=== PATIENT | female | born 1940 | race Asian ===

== ENCOUNTER 2017-04-08 10:10 | Inpatient (IN) | payer OTHER ==
[~2017-04-08] VITALS: Ht 162.6 cm; Wt 79.4 kg
[2017-04-08] VITALS (27 sets, daily range): BP systolic 121–160; BP diastolic 63–118; TEMP 97.3–98.2; Ht 162.6 cm; Wt 79.4 kg
[~2017-04-08 10:10] MED LIST: AMLO2.5T PO; METFORMIN ER1000 MG PO; METO50TA27 PO; OSCAL 500/1 TAB PO; QUINAPRIL20 MG PO; SIMV20TA2 PO; WARF5TAB6 PO
--- NOTE | 2017-04-08 10:10 | NUR ---
PT BROUGHT IN BY ER NURSE AND WAS A DIRECT ADMIT FROM DR FLORES'S OFFICE. PT ALERT AND ORIENTED.
--- NOTE | 2017-04-08 11:00 | NUR ---
SVT @ 173, MAINTAINED FOR 2MINS. THEN RETURNED TO ST @104. PT HAD NO C/O CHESTPAIN OR SOB.
[2017-04-08 11:25] LABS: PLATELET COUNT 266 K/uL (152-353)
[2017-04-08 11:47] LABS: POTASSIUM 3.4 mmol/L (3.6-5.2); SODIUM 140 mmol/L (136-145)
[2017-04-08 12:01] LABS: PARTIAL THROMBOPLASTIN TIME 25.3 SECONDS (24.5-33.6)
--- NOTE | 2017-04-08 12:06 | NUR ---
HR 105, ST. CARDIZEM 5MG SIVP GIVEN. WILL MONITOR
--- NOTE | 2017-04-08 12:20 | NUR ---
CARDIZEM 5MG IVSP GIVEN 2ND DOSE
[2017-04-08] MEDS ORDERED: TIMOLOL MAL0.5 % OP (14:10)
[2017-04-08] MEDS ORDERED: ALPHAGAN P0.1 % OP (14:12)
[2017-04-08] MEDS ORDERED: TRAVATAN Z0.004 % OP (14:13)
[2017-04-08] MEDS ORDERED: VITAMIN B-121000 MC1 SL (14:15)
--- NOTE | 2017-04-08 14:15 | NUR ---
UP TO BATHROOM TO VOID, TOLERATED WELL
[2017-04-08] MEDS ORDERED: LANTUS SOLOSTAR SC (14:17)
--- NOTE | 2017-04-08 16:07 | NUR ---
PT RESTING WITH EYES CLOSED, NO DISTRESS NOTED
--- NOTE | 2017-04-08 18:00 | NUR ---
PT CONT IN SR, HR @ 68. PT HAS HAD NO C/O DURING THE DAY.
--- NOTE | 2017-04-08 19:20 | NUR ---
LAB DRAW, PT TOLERATED WELL
--- NOTE | 2017-04-08 20:00 | NUR ---
FAMILY AT BEDSIDE. PATIENT AWAKE AND TALKING. NO ACUTE DISTRESS NOTED.
--- NOTE | 2017-04-08 22:45 | NUR ---
PATIENT ASSISTED TO BATHROOM AND BACK INTO BED WITHOUT INCIDENT
[2017-04-09] VITALS (9 sets, daily range): BP systolic 126–163; BP diastolic 65–91; TEMP 97.6–98.6
--- NOTE | 2017-04-09 01:35 | NUR ---
PATIENT ASSISTED TO BATHROOM AND BACK TO BED WITHOUT INCIDENT. NO DISTRESS NOTED.
--- NOTE | 2017-04-09 04:00 | NUR ---
PATIENT ASSISTED TO BATHROOM AND BACK TO BED WITHOUT INCIDENT. BLOOD DRAWN FOR MORNING LABS WITHOUT INCIDENT. NO ACUTE DISTRESS NOTED.
[2017-04-09 04:37] LABS: PLATELET COUNT 231 K/uL (152-353)
--- NOTE | 2017-04-09 05:03 | NUR ---
PATIENT SAID SHE FEELS LIKE HER SUGAR IS GETTING LOW. BLOOD GLUCOSE WAS CHECKED AND FOUND TO BE 162. RESPIRATIONS, HEART RATE, BLOOD PRESSURE, AND O2 SATURATION REMAIN IN NORMAL RANGE. NO ACUTE DISTRESS NOTED. WILL CONTINUE TO MONITOR.
[2017-04-09 05:08] LABS: POTASSIUM 3.8 mmol/L (3.6-5.2); SODIUM 138 mmol/L (136-145)
--- NOTE | 2017-04-09 06:37 | NUR ---
PATIENT AWAKE AND TALKING WITH STAFF. NO COMPLAINTS AT THIS TIME. NO ACUTE DISTRESS NOTED.
--- NOTE | 2017-04-09 07:30 | NUR ---
PT AMBULATING TO BATHROOM WITH WALKER. NAD NOTED.
--- NOTE | 2017-04-09 08:30 | NUR ---
DR FLORES AT BS. NEW ORDERS GIVEN TO MOVE PT TO MED SURG.
--- NOTE | 2017-04-09 09:00 | NUR ---
PT TO ROOM 1109 VIA WC. NAD NOTED. REPORT GIVEN TO ELIZABETH MAC RN
[2017-04-10] VITALS: BP 125/71; TEMP 98.7
[2017-04-10 04:00] VITALS: BP 108/70; TEMP 98.5
[2017-04-10 08:00] VITALS: BP 118/80; TEMP 98.3
[2017-04-10 12:00] VITALS: BP 134/75; TEMP 98.8
--- NOTE | 2017-04-10 15:00 | NUR ---
DISCHARGE ORDERS RECEIVED. PATIENT'S DAUGHTER JAYY CALLED. DISCUSSED OVER THE PHONE THAT DR. FLORES WANTED SOMEONE WHO WAS WILLING AND ABLE TO TAKE RESPONSIBILITY FOR SETTING UP AND ADMINISTERING THE PATIENT'S MEDICATION. JAYY STATES SHE FEELS COMFORTABLE DOING THAT AND WILL COME TO DISCUSS IT FURTHER.
--- NOTE | 2017-04-10 15:45 | NUR ---
JAYY (PATIENT'S YOUNGEST DAUGHTER)IS HERE. REVIEWED PATIENT'S HOME MEDICATIONS WITH HER. SHE VERBALIZES UNDERSTANDING OF MEDICATION SCHEDULE AND FEELS CONFIDENT THAT SHE CAN SET UP HER MEDICATIONS AND MAKE SURE SHE TAKES THEM DAILY SCHEDULED. JAYY SIGNED AN AGREEMENT TO THAT EFFECT. IV REMOVED, BANDAID APPLIED. REVIEWED ALL DISCHARGE INSTRUCTIONS WITH PATIENT AND FAMILY.
[2017-04-10 16:00] VITALS: BP 134/90; TEMP 98.9
--- NOTE | 2017-04-10 16:15 | NUR ---
PATIENT DISCHARGED HOME WITH FAMILY, ESCORTED TO HOSPITAL EXIT VIA WHEELCHAIR.
== END 2017-04-10 16:13 | disposition home or self-care (01) | DRG 310 ==
LOC: ICU 10:10 → MED/SURG 04-09 09:00
PROVIDERS: ADMIT Family Medicine
DX: I48.91 Unspecified atrial fibrillation (principal); I10 Essential (primary) hypertension; Z91.14 Patient's other noncompliance with medication regimen; Z86.73 Personal history of transient ischemic attack (TIA), and cerebral infarction without residual deficits
CPT/HCPCS: 36415; 80053; 82550; 82948; 82962; 83735; 84100; 84484; 85027; 85610; 85730; 93005; J3490

== ENCOUNTER 2017-08-28 10:20 | Outpatient (CLI) | payer OTHER ==
[~2017-08-28 10:20] MED LIST changes: +ALPHAGAN P0.1 % OP; +LANTUS SOLOSTAR SC; +TIMOLOL MAL0.5 % OP; +TRAVATAN Z0.004 % OP; +VITAMIN B-121000 MC1 SL
== END 2017-08-28 19:18 | disposition home or self-care (01) ==
LOC: MAMMO 10:20
DX: Z12.31 Encounter for screening mammogram for malignant neoplasm of breast (principal)

== ENCOUNTER 2018-07-21 15:14 | Emergency (ER) | payer OTHER ==
[~2018-07-21] VITALS: Ht 160 cm; Wt 78.5 kg
[2018-07-21 16:12] LABS: PLATELET COUNT 245 K/uL (152-353)
[2018-07-21 16:35] LABS: POTASSIUM 3.5 mmol/L (3.6-5.2)
[2018-07-21 17:42] VITALS: BP 146/85; TEMP 98
== END 2018-07-21 17:42 | disposition home or self-care (01) ==
LOC: ED 15:14
PROVIDERS: Emergency Medicine
DX: K52.89 Other specified noninfective gastroenteritis and colitis (principal)
CPT/HCPCS: 80053; 85027; 96365; 96374; 99284; J2405

== ENCOUNTER 2018-08-30 09:24 | Outpatient (CLI) | payer OTHER | END 2018-08-30 22:47 | disposition home or self-care (01) | LOC: MAMMO 09:24 | DX: Z12.31 Encounter for screening mammogram for malignant neoplasm of breast (principal) ==

== ENCOUNTER 2019-09-23 13:02 | Outpatient (CLI) | payer OTHER | END 2019-09-23 19:31 | disposition home or self-care (01) | LOC: MAMMO 13:02 | DX: Z12.31 Encounter for screening mammogram for malignant neoplasm of breast (principal) ==

== ENCOUNTER 2019-09-25 15:13 | Emergency (ER) | payer OTHER ==
[~2019-09-25] VITALS: Ht 160 cm; Wt 78.5 kg
[2019-09-25 15:31] VITALS: BP 183/113; TEMP 98.3
[2019-09-25 15:45] LABS: PLATELET COUNT 231 K/uL (152-353)
[2019-09-25 15:57] LABS: POTASSIUM 3.8 mmol/L (3.6-5.2)
[2019-09-25 16:03] LABS: PARTIAL THROMBOPLASTIN TIME 26.9 SECONDS (24.5-33.6)
== END 2019-09-25 18:57 | disposition home or self-care (01) ==
LOC: ED 15:13
PROVIDERS: Hospitalist
DX: R19.7 Diarrhea, unspecified (principal); R11.2 Nausea with vomiting, unspecified; K44.9 Diaphragmatic hernia without obstruction or gangrene; R10.84 Generalized abdominal pain
CPT/HCPCS: 36415; 80053; 81000; 82150; 83605; 83690; 85027; 85610; 85730; 93005; 96360; 96365; 96375; 99284; J2405; J3490; Q9963

== ENCOUNTER 2019-09-26 13:07 | Outpatient (CLI) | payer OTHER | END 2019-09-26 22:35 | disposition home or self-care (01) | LOC: MAMMO 13:07 | DX: Z12.31 Encounter for screening mammogram for malignant neoplasm of breast (principal) ==

== ENCOUNTER 2020-09-28 05:46 | Inpatient (IN) | payer OTHER ==
[~2020-09-28] VITALS: Ht 152.4 cm; Wt 66.3 kg
[2020-09-28] VITALS (14 sets, daily range): BP systolic 105–143; BP diastolic 62–100; TEMP 97.8–101.7; Ht 152.4 cm; Wt 66.3 kg
[2020-09-28 06:46] LABS: PLATELET COUNT 154 K/uL (152-353)
[2020-09-28 07:09] LABS: PARTIAL THROMBOPLASTIN TIME 38.2 SECONDS (24.5-33.6)
[2020-09-28 07:21] LABS: POTASSIUM 2.6 mmol/L (3.6-5.2); SODIUM 140 mmol/L (136-145)
[2020-09-28] MEDS ORDERED: AMLODIPINE BESYLATE PO (11:45)
[2020-09-28] MEDS ORDERED: MEMA5TAB PO (11:46)
[2020-09-28] MEDS ORDERED: FORTAMET500 MG PO (11:48)
[2020-09-28 13:14] LABS: POTASSIUM 2.9 mmol/L (3.6-5.2)
[2020-09-29] VITALS: BP 101/61; TEMP 99.5
[2020-09-29 04:00] VITALS: BP 96/62; TEMP 98.7
[2020-09-29 08:00] VITALS: BP 94/55; TEMP 97.8
[2020-09-29 08:42] LABS: PLATELET COUNT 207 K/uL (152-353)
[2020-09-29 16:00] VITALS: BP 118/63; TEMP 98.2
[2020-09-29 20:00] VITALS: BP 121/67; TEMP 98.1
[2020-09-29 23:57] VITALS: BP 127/70; TEMP 98.7
[2020-09-30 04:00] VITALS: BP 124/74; TEMP 98.2
[2020-09-30 07:08] LABS: PLATELET COUNT 238 K/uL (152-353)
[2020-09-30 07:28] LABS: POTASSIUM 2.5 mmol/L (3.6-5.2)
[2020-09-30 08:00] VITALS: BP 122/78; TEMP 98
[2020-09-30 12:00] VITALS: BP 109/59; TEMP 97.9
[2020-09-30 16:00] VITALS: BP 116/59; TEMP 98.1
[2020-09-30 20:00] VITALS: BP 117/69; TEMP 98.2
[2020-09-30 23:30] LABS: POTASSIUM 2.2 mmol/L (3.6-5.2)
[2020-10-01] VITALS (7 sets, daily range): BP systolic 123–158; BP diastolic 68–79; TEMP 98–99
[2020-10-01 06:53] LABS: PLATELET COUNT 298 K/uL (152-353)
[2020-10-01 07:28] LABS: POTASSIUM 2.3 mmol/L (3.6-5.2)
[2020-10-02 01:38] LABS: POTASSIUM 2.6 mmol/L (3.6-5.2)
[2020-10-02 04:00] VITALS: BP 121/67; TEMP 99.9
[2020-10-02 06:24] LABS: PLATELET COUNT 303 K/uL (152-353)
[2020-10-02 06:56] LABS: POTASSIUM 3.2 mmol/L (3.6-5.2)
[2020-10-02 08:00] VITALS: BP 118/68; TEMP 208.8
[2020-10-02 11:46] VITALS: BP 122/66; TEMP 98.1
[2020-10-02 16:00] VITALS: BP 114/66; TEMP 98.2
[2020-10-02 20:00] VITALS: BP 113/65; TEMP 98.5
[2020-10-03] VITALS: BP 129/70; TEMP 98.8
[2020-10-03 03:45] VITALS: BP 120/70; TEMP 98.6
[2020-10-03 06:13] LABS: PLATELET COUNT 379 K/uL (152-353)
[2020-10-03 08:00] VITALS: BP 122/60; TEMP 99.7
[2020-10-03 12:00] VITALS: BP 115/62; TEMP 98.5
[2020-10-03 16:00] VITALS: BP 131/72; TEMP 98.4
[2020-10-03 19:26] VITALS: BP 128/74; TEMP 98.9
[2020-10-04] VITALS (7 sets, daily range): BP systolic 110–129; BP diastolic 58–80; TEMP 97.3–98.7
[2020-10-04 05:56] LABS: POTASSIUM 3.6 mmol/L (3.6-5.2)
[2020-10-04 06:36] LABS: PLATELET COUNT 306 K/uL (152-353)
[2020-10-05 04:00] VITALS: BP 124/70; TEMP 98.2
[2020-10-05 08:00] VITALS: BP 119/77; TEMP 98.3
[2020-10-05 11:07] LABS: PLATELET COUNT 452 K/uL (152-353)
[2020-10-05 11:25] LABS: POTASSIUM 3.4 mmol/L (3.6-5.2)
[2020-10-05 12:00] VITALS: BP 123/72; TEMP 98.2
[2020-10-05 16:00] VITALS: BP 120/72; TEMP 97.9
[2020-10-05 20:00] VITALS: BP 118/70; TEMP 98.1
[2020-10-06] VITALS: BP 126/78; TEMP 98.3
[2020-10-06 03:48] VITALS: BP 121/69; TEMP 98.3
[2020-10-06 07:45] LABS: PLATELET COUNT 430 K/uL (152-353)
[2020-10-06 07:59] LABS: POTASSIUM 3.2 mmol/L (3.6-5.2)
[2020-10-06 08:00] VITALS: BP 141/74; TEMP 97.9
[2020-10-06 11:57] VITALS: BP 110/69; TEMP 98.3
== END 2020-10-06 14:20 | disposition home or self-care (01) | DRG 177 ==
LOC: ED 05:46 → MED/SURG 07:59
PROVIDERS: Emergency Medicine Emergency Medical Services; ADMIT Family Medicine; ATTEND Family Medicine
DX: U07.1 COVID-19 (principal); J18.8 Other pneumonia, unspecified organism; E46 Unspecified protein-calorie malnutrition; E87.6 Hypokalemia; E11.9 Type 2 diabetes mellitus without complications; F03.90 Unspecified dementia, unspecified severity, without behavioral disturbance, psychotic disturbance, mood disturbance, and anxiety; Z86.73 Personal history of transient ischemic attack (TIA), and cerebral infarction without residual deficits; I48.0 Paroxysmal atrial fibrillation; R00.0 Tachycardia, unspecified; I95.89 Other hypotension; T45.511A Poisoning by anticoagulants, accidental (unintentional), initial encounter; I10 Essential (primary) hypertension
CPT/HCPCS: 36415; 80048; 80053; 82550; 82553; 83605; 83735; 83880; 84100; 84484; 85007; 85027; 85379; 85610; 85730; 87040; 87635; 93005; 94667; 94668; 94760; 96360; 96365; 96366; 96375; 99285; J0456; J0696; J1885; J2405; J3475; J3480; J3490; U0003

== ENCOUNTER 2020-10-07 19:03 | Emergency (ER) | payer OTHER ==
[~2020-10-07] VITALS: Ht 152.4 cm; Wt 66.2 kg
[~2020-10-07 19:03] MED LIST changes: +AMLODIPINE BESYLATE PO; +FORTAMET500 MG PO; +MEMA5TAB PO
[2020-10-07 19:44] LABS: POTASSIUM 2.8 mmol/L (3.6-5.2); SODIUM 144 mmol/L (136-145)
[2020-10-07 19:53] LABS: PLATELET COUNT 483 K/uL (152-353)
[2020-10-07 20:06] LABS: PARTIAL THROMBOPLASTIN TIME 35.3 SECONDS (24.5-33.6)
[2020-10-07 20:53] VITALS: BP 97/55; TEMP 98.7
== END 2020-10-07 20:53 | disposition home or self-care (01) ==
LOC: ED 19:03
PROVIDERS: Hospitalist
DX: E11.649 Type 2 diabetes mellitus with hypoglycemia without coma (principal); Z79.84 Long term (current) use of oral hypoglycemic drugs; E87.6 Hypokalemia; U07.1 COVID-19; I48.91 Unspecified atrial fibrillation; Z79.01 Long term (current) use of anticoagulants
CPT/HCPCS: 80053; 80320; 82550; 82962; 83880; 84484; 85027; 85610; 85730; 93005; 96360; 96361; 99283; 99284

== ENCOUNTER 2020-10-16 10:11 | Outpatient (CLI) | payer OTHER | END 2020-10-16 21:32 | disposition home or self-care (01) | LOC: MAMMO 10:11 | PROVIDERS: ATTEND Nurse Practitioner Family | DX: Z12.31 Encounter for screening mammogram for malignant neoplasm of breast (principal) ==

== ENCOUNTER 2021-07-16 15:25 | Outpatient (CLI) | payer OTHER | END 2021-07-16 20:09 | disposition home or self-care (01) | LOC: RAD 15:25 | PROVIDERS: ATTEND Nurse Practitioner Primary Care | DX: Z20.822 Contact with and (suspected) exposure to COVID-19 (principal) | CPT/HCPCS: 36415; 82728; 85379; 86140 ==

== ENCOUNTER 2021-07-26 14:10 | Observation (INO) | payer OTHER ==
[~2021-07-26] VITALS: Ht 157.5 cm; Wt 67.1 kg
[2021-07-26 14:11] VITALS: BP 154/78; TEMP 97.2
[2021-07-26 14:56] LABS: PLATELET COUNT 284 K/uL (152-353)
[2021-07-26 15:00] VITALS: BP 138/79
[2021-07-26 15:19] LABS: POTASSIUM 3.5 mmol/L (3.6-5.2)
[2021-07-26 15:30] VITALS: BP 135/68
[2021-07-26 16:00] VITALS: BP 138/72
[2021-07-26 16:30] VITALS: BP 131/71; TEMP 97.2
[2021-07-26 23:45] VITALS: BP 145/78; TEMP 97.5; Ht 157.5 cm; Wt 67.1 kg
[2021-07-27] VITALS: BP 154/86; TEMP 98.3
[2021-07-27 04:00] VITALS: BP 144/75; TEMP 98
[2021-07-27 05:31] LABS: PLATELET COUNT 249 K/uL (152-353)
[2021-07-27 05:41] LABS: POTASSIUM 3.4 mmol/L (3.6-5.2)
[2021-07-27 08:00] VITALS: BP 133/68; TEMP 98.3
[2021-07-27 12:00] VITALS: BP 127/73; TEMP 98.1
[2021-07-27 16:00] VITALS: BP 140/86; BP 152/92; TEMP 97.5
[2021-07-27 20:00] VITALS: BP 131/82; TEMP 98.7
[2021-07-28] VITALS: BP 132/70; TEMP 98.2
[2021-07-28 04:00] VITALS: BP 123/64; TEMP 98.5
[2021-07-28 06:07] LABS: PLATELET COUNT 263 K/uL (152-353)
[2021-07-28 06:54] LABS: POTASSIUM 3.4 mmol/L (3.6-5.2)
[2021-07-28 08:00] VITALS: BP 140/73; TEMP 98.2
[2021-07-28 12:00] VITALS: BP 122/72; TEMP 98.5
[2021-07-28 16:00] VITALS: BP 151/78; TEMP 98.3
[2021-07-28 21:20] VITALS: BP 147/81; TEMP 98.3
[2021-07-29] VITALS: BP 103/58; TEMP 97.3
[2021-07-29 04:00] VITALS: BP 142/85; TEMP 98.4
[2021-07-29 06:04] LABS: PLATELET COUNT 249 K/uL (152-353)
[2021-07-29 06:41] LABS: POTASSIUM 3.2 mmol/L (3.6-5.2)
[2021-07-29 08:00] VITALS: BP 143/74; TEMP 98.1
[2021-07-29 12:00] VITALS: BP 159/85; TEMP 97.5
== END 2021-07-29 19:31 | disposition home or self-care (01) ==
LOC: ED 14:10 → MED/SURG 19:06
PROVIDERS: ADMIT Emergency Medicine Emergency Medical Services; ATTEND Family Medicine
DX: I48.0 Paroxysmal atrial fibrillation (principal); Z79.01 Long term (current) use of anticoagulants; F01.50 Vascular dementia, unspecified severity, without behavioral disturbance, psychotic disturbance, mood disturbance, and anxiety; E11.9 Type 2 diabetes mellitus without complications; I10 Essential (primary) hypertension; I25.10 Atherosclerotic heart disease of native coronary artery without angina pectoris; M15.8 Other polyosteoarthritis; R07.89 Other chest pain; M62.81 Muscle weakness (generalized); Z74.1 Need for assistance with personal care
CPT/HCPCS: 36415; 36600; 80048; 80053; 81000; 82550; 82805; 82948; 83735; 83880; 84100; 84443; 84484; 85027; 85610; 87040; 87635; 93005; 94664; 96360; 96361; 96365; 96367; 99220; 99284; G0378; J0456; J0696; J3475; J3490; U0003

== ENCOUNTER 2021-07-30 08:24 | Outpatient (CLI) | payer OTHER ==
[~2021-07-30] VITALS: Ht 157.5 cm; Wt 65.3 kg
== END 2021-07-30 18:57 | disposition home or self-care (01) ==
LOC: NM 08:24
PROVIDERS: ATTEND Family Medicine
DX: R53.1 Weakness (principal); J20.9 Acute bronchitis, unspecified; Z79.899 Other long term (current) drug therapy
CPT/HCPCS: A9500; J2785

== ENCOUNTER 2021-09-09 09:54 | Outpatient (CLI) | payer OTHER | END 2021-09-09 19:00 | disposition home or self-care (01) | LOC: RESP 09:54 | PROVIDERS: ATTEND Specialist | DX: R53.1 Weakness (principal); Z86.73 Personal history of transient ischemic attack (TIA), and cerebral infarction without residual deficits; R52 Pain, unspecified; I48.91 Unspecified atrial fibrillation; I10 Essential (primary) hypertension ==

== ENCOUNTER 2022-05-01 08:50 | Outpatient (CLI) | payer OTHER | END 2022-05-01 19:24 | disposition home or self-care (01) | LOC: MRI 08:50 | PROVIDERS: ATTEND Psychiatry & Neurology Neurology | DX: G30.1 Alzheimer's disease with late onset (principal); F02.80 Dementia in other diseases classified elsewhere, unspecified severity, without behavioral disturbance, psychotic disturbance, mood disturbance, and anxiety ==